=== PATIENT | female | born 1965 | race Two or more races ===

== ENCOUNTER 2017-01-18 08:16 | Emergency (ER) | payer SELFPAY ==
[~2017-01-18] VITALS: Ht 160 cm; Wt 74.8 kg
[~2017-01-18 08:16] MED LIST: METH5TAB2 PO
--- NOTE | 2017-01-18 10:12 | PHYS DOC ---
Past Medical History Past Medical History: Kidney Stone, Other Additional Past Medical Histor: stomach ulcer Past Surgical History: Hysterectomy Alcohol Use: None Drug Use: None Adult General Chief Complaint Chief Complaint: RECTAL BLEED HPI HPI Patient is a 52 year old F who presents with GI bleed. Patient states that for the past 3 days she's had a mix of dark and bright red blood per rectum. Patient describes some epigastric pain. Patient states she has a history of bleeding ulcer. Patient states she's been under a lot of stress with the of her niece. Patient denies any hemorrhoids and states she is on any blood thinners. Patient denies any fevers. Patient denies any chest pain or shortness of breath. Patient has no other complaints. Review of Systems Review of Systems GEN: Denies fevers, chills, sweats HEENT: Denies blurred vision, sore throat CV: Denies chest pain RESP: Denies shortness of air, cough GI: Denies rectal bleeding NEURO: Denies confusion, dizziness MSK: Denies weakness, joint pain/swelling Current Medications Current Medications Current Medications Medications (Trade) Dose Ordered Sig/Gabby Start Time Stop Time Status Last Admin Dose Admin Famotidine (Pepcid) 20 mg 1X ONCE 01/18/17 10:15 01/18/17 10:16 DC 01/18/17 10:29 20 MG Fentanyl Citrate (Fentanyl 2ml Vial) 50 mcg 1X ONCE 01/18/17 11:30 01/18/17 11:38 DC 01/18/17 11:23 50 MCG Info (Do NOT chart on this entry -- for MONITORING) 1 each PRN DAILY PRN 01/18/17 10:30 01/20/17 10:29 Iohexol (Omnipaque 300 Mg/ml) 75 ml 1X ONCE 01/18/17 10:30 01/18/17 10:31 DC 01/18/17 10:33 75 ML Allergies Allergies Allergies Coded Allergies Type Severity Reaction Last Updated Verified codeine Allergy Intermediate ITCHING 11/19/13 Yes Physical Exam Physical Exam GEN.: No apparent distress. Alert and oriented. HEENT: Head is normocephalic, atraumatic NECK: Supple. LUNGS: CTAB. HEART: RRR, S1, S2 present. Peripheral pulses intact ABDOMEN: Soft, nontender. Positive bowel sounds. Rectal exam done by the nurse no gross blood seen, no hemorrhoids, stool sent to lab for testing of occult blood EXTREMITIES: Without any cyanosis. NEUROLOGIC: Normal speech, normal tone PSYCHIATRIC: Normal affect, normal mood. SKIN: No ulcerations Current Patient Data Vital Signs Vital Signs Date Time Temp Pulse Resp B/P (MAP) Pulse Ox O2 Delivery O2 Flow Rate FiO2 01/18/17 12:17 12 98 Room Air 01/18/17 12:11 66 94/68 (77) 01/18/17 09:25 98.1 98.1 Lab Values Laboratory Tests Test 01/18/17 09:25 01/18/17 09:30 01/18/17 09:41 01/18/17 10:10 Urine Collection Type Unknown Urine Color Yellow Urine Clarity Clear Urine pH 6.5 Urine Specific [place] 1.010 Urine Protein Negative mg/dL (NEG-TRACE) Urine Glucose (UA) Negative mg/dL (NEG) Urine Ketones (Stick) Negative mg/dL (NEG) Urine Blood Large (NEG) Urine Nitrite Negative (NEG) Urine Bilirubin Negative (NEG) Urine Urobilinogen Dipstick 0.2 mg/dL (0.2 mg/dL) Urine Leukocyte Esterase Negative (NEG) Urine RBC >40 /HPF (0-2) Urine WBC 0 /HPF (0-4) Urine Squamous Epithelial Cells Few /LPF Urine Bacteria 0 /HPF (0-FEW) White Blood Count 4.1 x10^3/uL (4.0-11.0) Red Blood Count 4.33 x10^6/uL (3.50-5.40) Hemoglobin 13.0 g/dL (12.0-15.5) Hematocrit 38.3 % (36.0-47.0) Mean Corpuscular Volume 89 fL (79-100) Mean Corpuscular Hemoglobin 30 pg (25-35) Mean Corpuscular Hemoglobin Concent 34 g/dL (31-37) Red Cell Distribution Width 12.7 % (11.5-14.5) Platelet Count 313 x10^3/uL (140-400) Neutrophils (%) (Auto) 52 % (31-73) Lymphocytes (%) (Auto) 38 % (24-48) Monocytes (%) (Auto) 8 % (0-9) Eosinophils (%) (Auto) 2 % (0-3) Basophils (%) (Auto) 1 % (0-3) Neutrophils # (Auto) 2.1 x10^3uL (1.8-7.7) Lymphocytes # (Auto) 1.5 x10^3/uL (1.0-4.8) Monocytes # (Auto) 0.3 x10^3/uL (0.0-1.1) Eosinophils # (Auto) 0.1 x10^3/uL (0.0-0.7) Basophils # (Auto) 0.0 x10^3/uL (0.0-0.2) Sodium Level 140 mmol/L (136-145) Potassium Level 3.5 mmol/L (3.5-5.1) Chloride Level 103 mmol/L (98-107) Carbon Dioxide Level 31 mmol/L (21-32) Anion Gap 6 (6-14) Blood Urea Nitrogen 8 mg/dL (7-20) Creatinine 0.7 mg/dL (0.6-1.0) Estimated GFR (Cockcroft-Gault) 87.5 BUN/Creatinine Ratio 11 (6-20) Glucose Level 109 mg/dL (70-99) H Calcium Level 9.2 mg/dL (8.5-10.1) Total Bilirubin 1.0 mg/dL (0.2-1.0) Aspartate Amino Transferase (AST) 17 U/L (15-37) Alanine Aminotransferase (ALT) 41 U/L (14-59) Alkaline Phosphatase 115 U/L (46-116) Total Protein 8.2 g/dL (6.4-8.2) Albumin 4.1 g/dL (3.4-5.0) Albumin/Globulin Ratio 1.0 (1.0-1.7) Lipase 122 U/L (73-393) Stool Occult Blood Negative (NEG) Lactic Acid Level 1.1 mmol/L (0.4-2.0) Laboratory Tests 01/18/17 09:30 Laboratory Tests 01/18/17 09:30 EKG EKG [] Radiology/Procedures Radiology/Procedures CT A and P Findings: Comparison study is dated 11/19/2013. Images through the lung bases demonstrate minimal dependent subsegmental atelectasis bilaterally. The liver, spleen, pancreas, and adrenal glands are within normal limits. A 5 mm rounded low-attenuation lesion is seen involving the superior pole of the right kidney. This likely represents a cyst. A 1 cm nonobstructing calculus is seen involving the lower pole of the left kidney. The abdominal aorta tapers normally. The gallbladder is contracted. No free fluid or free air is seen within the abdomen. There is no evidence of bowel obstruction. Images through the pelvis demonstrate the urinary bladder distended with urine. No free fluid is seen. Degenerative changes are seen involving the lower thoracic and throughout the lumbar spine and both hips. Impression: No acute abnormality is seen.[] Course & Med Decision Making Course & Med Decision Making Pertinent Labs and Imaging studies reviewed. (See chart for details) ED course: Patient was seen and examined emergency room CBC, CMP, lipase, CT scan abdomen pelvis, stool sample for occult blood was ordered 1244: On reexamination patient is improved and feeling better. Discussed with the patient that her rectal exam showed no blood in her CT scan was unremarkable. Patient does have significant hematuria and patient stated she had no signs or symptoms of UTI. Recommended patient follow-up with PCP for further evaluation of the hematuria. At this time I do not believe the patient has a UTI and therefore does not need antibiotics. I believe the patient is stable for discharge. Patient is comfortable going home. MDM: After reviewing the chart, CC/HPI/PMH, physical exam, [lab results], [ radiological results], I do not believe the patient's having a GI bleed given the fact the Hemoccult was negative in the CT scan was unremarkable. I believe the blood is coming from her urine however the patient having no signs of UTI and I recommended she follow up with PCP for further evaluation of her hematuria in the next 1-2 days. I believe the patient is stable for discharge. Additional verbal discharge instructions were provided to the patient and that if symptoms get worse or any new symptoms arise that are worrisome to the patient she is to return to the emergency room immediately [] Dragon Disclaimer Dragon Disclaimer This electronic medical record was generated, in whole or in part, using a voice recognition dictation system. Departure Departure Impression: Primary Impression: Hematuria Additional Impression: Abdominal pain Disposition: 01 HOME, SELF-CARE Condition: IMPROVED Referrals: UNKNOWN PCP NAME (PCP) Patient Instructions: Hematuria-Brief Additional Instructions: Please follow up with your family physician in one to 2 days and return symptoms increase Problem Qualifiers ИРИНА ROBERT DO Jan 18, 2017 10:12
[2017-01-18] MEDS ORDERED: FAMOTIDINE 20 MG TABLET. PO ONE (10:15)
[2017-01-18 10:21] LABS: NEG OBC FOB NEG; POS OBC FOB POS
[2017-01-18 10:26] LABS: BILIRUBIN,URINE NEGATIVE (NEG); GLUCOSE,URINE NEGATIVE (NEG); NITRITE,URINE NEGATIVE (NEG); PH,URINE 6.5; PROTEIN,URINE NEGATIVE (NEG-TRACE); UROBILINOGEN,URINE 0.2 mg/dL (0.2 mg/dL)
[2017-01-18 10:27] LABS: BACTERIA,URINE 0 /HPF (0-FEW); RBC,URINE >40 /HPF (0-2); SQUAMOUS EPITHELIAL CELL,UR FEW /LPF; WBC,URINE 0 /HPF (0-4)
[2017-01-18] MEDS ORDERED: IOHEXOL 300 MG/ML 75 ML VIAL IV ONE (10:30)
[2017-01-18] MEDS ORDERED: CONTRAST GIVEN MC PRN (10:30)
--- NOTE | 2017-01-18 10:36 | RAD ---
CT scan of the abdomen and pelvis with contrast 01/18/2017 Clinical history: GI bleeding. Technique: After the intravenous administration of 75 cc of Omnipaque 300 only, contiguous, 5 mm axial sections were obtained through the abdomen and pelvis. One or more of the following individualized dose reduction techniques were utilized for this study: 1. Automated exposure control. 2. Adjustment of the mA and/or kV according to patient size. 3. Use of iterative reconstruction technique. Findings: Comparison study is dated 11/19/2013. Images through the lung bases demonstrate minimal dependent subsegmental atelectasis bilaterally. The liver, spleen, pancreas, and adrenal glands are within normal limits. A 5 mm rounded low-attenuation lesion is seen involving the superior pole of the right kidney. This likely represents a cyst. A 1 cm nonobstructing calculus is seen involving the lower pole of the left kidney. The abdominal aorta tapers normally. The gallbladder is contracted. No free fluid or free air is seen within the abdomen. There is no evidence of bowel obstruction. Images through the pelvis demonstrate the urinary bladder distended with urine. No free fluid is seen. Degenerative changes are seen involving the lower thoracic and throughout the lumbar spine and both hips. Impression: No acute abnormality is seen.
[2017-01-18 10:42] LABS: CALCIUM 9.2 mg/dL (8.5-10.1); CREATININE 0.7 mg/dL (0.6-1.0); GFR 87.5; POTASSIUM 3.5 mmol/L (3.5-5.1)
[2017-01-18 10:43] LABS: BASO % 1 % (0-3); EOS % 2 % (0-3); HEMATOCRIT 38.3 % (36.0-47.0); LYMPH # 1.5 x10^3/uL (1.0-4.8); LYMPH % 38 % (24-48); MEAN CORPUSCULAR HEMOGLOBIN 30 pg (25-35); MEAN CORPUSCULAR HGB CONC 34 g/dL (31-37); MEAN CORPUSCULAR VOLUME 89 fL (79-100); MONO % 8 % (0-9); NEUT % 52 % (31-73); PLATELET COUNT 313 x10^3/uL (140-400); RED BLOOD COUNT 4.33 x10^6/uL (3.50-5.40); RED CELL DISTRIBUTION WIDTH 12.7 % (11.5-14.5); WHITE BLOOD COUNT 4.1 x10^3/uL (4.0-11.0)
[2017-01-18 10:48] LABS: ALBUMIN 4.1 g/dL (3.4-5.0); TOTAL PROTEIN 8.2 g/dL (6.4-8.2)
[2017-01-18] MEDS ORDERED: fentaNYL PF VIAL 100 MCG/2 ML VIAL IV ONE (11:30)
[2017-01-18 12:11] VITALS: BP 94/68
== END 2017-01-18 13:08 | disposition home or self-care (01) ==
LOC: ER 08:16
DX: R31.9 Hematuria, unspecified (principal); R10.13 Epigastric pain; K92.2 Gastrointestinal hemorrhage, unspecified; Z90.710 Acquired absence of both cervix and uterus; Z87.442 Personal history of urinary calculi; Z87.19 Personal history of other diseases of the digestive system; Z88.5 Allergy status to narcotic agent
CPT/HCPCS: 36415; 74177; 80053; 81001; 82274; 83605; 83690; 85025; 86850; 86870; 86900; 86901; 96374; 99285; J3010; Q9967

== ENCOUNTER 2019-08-05 09:20 | Emergency (ER) | payer SELFPAY ==
[~2019-08-05] VITALS: Ht 162.6 cm; Wt 72.7 kg
[2019-08-05 09:23] VITALS: BP 134/64
[2019-08-05] MEDS ORDERED: NAPR-514 PO (09:35)
[2019-08-05] MEDS ORDERED: AMOX500C PO (09:35)
--- NOTE | 2019-08-05 09:35 | PHYS DOC ---
Past Medical History Past Medical History: Kidney Stone, Other Additional Past Medical Histor: stomach ulcer Past Surgical History: Hysterectomy Smoking Status: Never Smoker Alcohol Use: None Drug Use: None Adult General Chief Complaint Chief Complaint: EARACHE/EAR PAIN HPI HPI Patient is a 54-year-old female who presents with 2 day history of left ear pain. She states the pain is throbbing in nature. She states it got worse today. She did have some drainage from the ear this morning. She denies any hearing loss. She has been congested. She's not been running a fever.[] Review of Systems Review of Systems Constitutional: Denies fever or chills [] Eyes: Denies change in visual acuity, redness, or eye pain [] HENT: Per history of present illness[] Respiratory: Denies cough or shortness of breath [] Cardiovascular: No additional information not addressed in HPI [] GI: Denies abdominal pain, nausea, vomiting, bloody stools or diarrhea [] : Denies dysuria or hematuria [] Musculoskeletal: Denies back pain or joint pain [] Integument: Denies rash or skin lesions [] Neurologic: Denies headache, focal weakness or sensory changes [] Endocrine: Denies polyuria or polydipsia [] All other systems were reviewed and found to be within normal limits, except as documented in this note. Allergies Allergies Allergies Coded Allergies Type Severity Reaction Last Updated Verified codeine Allergy Intermediate ITCHING 11/19/13 Yes Physical Exam Physical Exam Constitutional: Well developed, well nourished, no acute distress, non-toxic appearance. [] HENT: Left TM is red and bulging[] Eyes: PERRLA, EOMI, conjunctiva normal, no discharge. [] Neck: Normal range of motion, no tenderness, supple, no stridor. [] Cardiovascular:Heart rate regular rhythm, no murmur [] Lungs & Thorax: Bilateral breath sounds clear to auscultation [] Abdomen: Bowel sounds normal, soft, no tenderness, no masses, no pulsatile masses. [] Skin: Warm, dry, no erythema, no rash. [] Back: No tenderness, no CVA tenderness. [] Extremities: No tenderness, no cyanosis, no clubbing, ROM intact, no edema. [] Neurologic: Alert and oriented X 3, normal motor function, normal sensory function, no focal deficits noted. [] Psychologic: Affect normal, judgement normal, mood normal. [] EKG EKG [] Radiology/Procedures Radiology/Procedures [] Course & Med Decision Making Course & Med Decision Making Pertinent Labs and Imaging studies reviewed. (See chart for details) [] Dragon Disclaimer Dragon Disclaimer This electronic medical record was generated, in whole or in part, using a voice recognition dictation system. Departure Departure Impression: Primary Impression: Left otitis media Disposition: HOME, SELF-CARE Condition: STABLE Referrals: NO PCP (PCP) Scripts Naproxen (NAPROXEN) 500 Mg Tablet 1 TAB PO BID PRN for PAIN, #30 TAB 1 Refill Prov: BRENNA SIPMSON DO 08/05/19 Amoxicillin (AMOXICILLIN) 500 Mg Capsule 1 CAP PO TID for pharyngitis, #30 CAP Prov: BRENNA SIMPSON DO 08/05/19 Problem Qualifiers Primary Impression: Left otitis media Otitis media type: suppurative Chronicity: acute Recurrence: non- recurrent Spontaneous tympanic membrane rupture: without spontaneous rupture Qualified Codes: H66.002 - Acute suppurative otitis media without spontaneous rupture of ear drum, left ear BRENNA SIMPSON DO Aug 05, 2019 09:35
== END 2019-08-05 09:40 | disposition home or self-care (01) ==
LOC: ER 09:20
DX: H66.002 Acute suppurative otitis media without spontaneous rupture of ear drum, left ear (principal); Z90.710 Acquired absence of both cervix and uterus; Z87.442 Personal history of urinary calculi; Z88.5 Allergy status to narcotic agent
CPT/HCPCS: 99283

== ENCOUNTER 2019-09-19 10:56 | Emergency (ER) | payer SELFPAY ==
[~2019-09-19] VITALS: Ht 162.6 cm; Wt 83.1 kg
[~2019-09-19 10:56] MED LIST changes: +AMOX500C PO; +NAPR-514 PO
[2019-09-19 11:00] VITALS: BP 129/64
[2019-09-19] MEDS ORDERED: PRED20TA PO (11:48)
[2019-09-19] MEDS ORDERED: CYCL10TA2 PO (11:48)
--- NOTE | 2019-09-19 11:48 | PHYS DOC ---
Past Medical History Past Medical History: Kidney Stone, Other Additional Past Medical Histor: stomach ulcer Past Surgical History: Hysterectomy Smoking Status: Never Smoker Alcohol Use: None Drug Use: None General Adult EDM: Chief Complaint: BACK PAIN - NO INJURY HPI: HPI: Patient is a 54-year-old female who presents to the emergency department for evaluation of right Lumbar/sacral pain. She states that on Tuesday, she was helping her , who has had a stroke, and she lifted him up and felt a pulling in her right lower back, and her lumbar/sacral area. She has not had any numbness, weakness, incontinence, fevers or chills, or radiation of the pain. She has not had any hematuria or dysuria. Movement and ambulation worsens her pain. There are no alleviating factors to her symptoms. She has tried using a heating pad without improvement in her symptoms. Review of Systems: Review of Systems: Constitutional: Denies fever or chills. [] Eyes: Denies change in visual acuity. [] HENT: Denies nasal congestion or sore throat. [] Respiratory: Denies cough or shortness of breath. [] Cardiovascular: Denies chest pain or edema. [] GI: Denies abdominal pain, nausea, vomiting, bloody stools or diarrhea. [] : Denies dysuria. [] Musculoskeletal: Denies mid or upper back pain or joint pain. [] Integument: Denies rash. [] Neurologic: Denies headache, focal weakness or sensory changes. [] Endocrine: Denies polyuria or polydipsia. [] Heart Score: Risk Factors: Risk Factors: DM, Current or recent (<one month) smoker, HTN, HLP, family history of CAD, obesity. Risk Scores: Score 0 - 3: 2.5% MACE over next 6 weeks - Discharge Home Score 4 - 6: 20.3% MACE over next 6 weeks - Admit for Clinical Observation Score 7 - 10: 72.7% MACE over next 6 weeks - Early Invasive Strategies Allergies: Allergies: Allergies Coded Allergies Type Severity Reaction Last Updated Verified codeine Allergy Intermediate ITCHING 11/19/13 Yes Physical Exam: PE: PHYSICAL EXAM: CONSTITUTIONAL: Well developed, well nourished HEAD: normocephalic, atraumatic EENT: PERRL, EOMI. Conjunctivae normal color, sclerae non-icteric; moist mucous membranes. NECK: Supple, non-tender; no meningismus. LUNGS: Lungs CTA, breathing even and unlabored. Normal air movement. HEART: Regular rate and rhythm, no murmur CHEST: No deformity; non-tender ABDOMEN: The abdomen is soft, and non-tender, no masses or bruits. EXTREM: Normal ROM; no deformity, no calf tenderness. Normal pulses palpable in all extremities. There is no pedal edema. SKIN: No rash; no diaphoresis NEURO: Alert; normal speech and cognition; CN's grossly intact; strength grossly intact without focal deficit. Distal sensation and motor function is normal. There is no foot drop. Patellar reflexes are 2+ bilaterally. Perineal sensation is intact. BACK: No CVA TTP. There is mild tenderness to palpation in the right lower lumbar/sacral area, and the paraspinal region. There is no midline vertebral tenderness to palpation to the thoracic, lumbar, or sacral spine. Current Patient Data: Vital Signs: Vital Signs Date Time Temp Pulse Resp B/P (MAP) Pulse Ox O2 Delivery O2 Flow Rate FiO2 09/19/19 11:00 99.0 66 18 129/64 (85) 97 Room Air 99.0 EKG: EKG: [] Radiology/Procedures: Radiology/Procedures: [] Course & Med Decision Making: Course & Med Decision Making Discussed home care plan, the need for PCP follow-up and return precautions. Philip Disclaimer: Philip Disclaimer: This electronic medical record was generated, in whole or in part, using a voice recognition dictation system. Departure Departure Impression: Primary Impression: Lumbosacral strain Disposition: 01 HOME, SELF-CARE Condition: STABLE Patient Instructions: Lumbosacral Strain Additional Instructions: Ibuprofen 400-600 mg every 6 hours may help improve your symptoms. Applying a heating pad to the affected area may help improve your symptoms. The prescribed medications may cause drowsiness-use caution while taking. Return to medical care for any new or worsening symptoms, development of numbness, weakness, incontinence, or any other new or concerning symptoms. Scripts Prednisone (PREDNISONE) 20 Mg Tablet 40 MG PO DAILY for 5 Days, #10 TAB Prov: WILLA MOORE MD 09/19/19 Cyclobenzaprine Hcl (CYCLOBENZAPRINE HCL) 10 Mg Tablet 1 TAB PO TID PRN for PAIN, #30 TAB Prov: WILLA MOORE MD 09/19/19 WILLA MOORE MD Sep 19, 2019 11:48
== END 2019-09-19 11:57 | disposition home or self-care (01) ==
LOC: ER 10:56
DX: S29.012A Strain of muscle and tendon of back wall of thorax, initial encounter (principal); Z90.710 Acquired absence of both cervix and uterus; Z87.442 Personal history of urinary calculi; X50.0XXA Overexertion from strenuous movement or load, initial encounter; Y93.89 Activity, other specified; Y92.89 Other specified places as the place of occurrence of the external cause; Y99.8 Other external cause status
CPT/HCPCS: 99283

== ENCOUNTER 2019-10-25 17:29 | Emergency (ER) | payer SELFPAY ==
[~2019-10-25] VITALS: Ht 157.5 cm; Wt 75.0 kg
[~2019-10-25 17:29] MED LIST changes: +CYCL10TA2 PO; +PRED20TA PO
--- NOTE | 2019-10-25 18:24 | PHYS DOC ---
Past Medical History Past Medical History: Kidney Stone, Other Additional Past Medical Histor: stomach ulcer Past Surgical History: Hysterectomy Smoking Status: Never Smoker Alcohol Use: None Drug Use: None General Adult EDM: Chief Complaint: FLANK PAIN HPI: HPI: Patient is a 54 year old female presenting to the ED with a chief complaint of left flank pain. Patient states that the pain started 2 to 3 days ago. Patient denies fever, chills, nausea, vomiting, diarrhea, dysuria, chest pain, shortness of breath. Patient does say that she has a history of kidney stones. Patient states that the pain is constant and that it radiates to her left lower abdomen. Patient describes the pain as throbbing. Review of Systems: Review of Systems: Constitutional: Denies fever or chills. [] Eyes: Denies change in visual acuity. [] HENT: Denies nasal congestion or sore throat. [] Respiratory: Denies cough or shortness of breath. [] Cardiovascular: Denies chest pain or edema. [] GI: Complains of left CVA tenderness radiating down to her left lower quadrant : Denies dysuria. [] Musculoskeletal: Denies back pain or joint pain. [] Neurologic: Denies headache, focal weakness or sensory changes. [] Heart Score: Risk Factors: Risk Factors: DM, Current or recent (<one month) smoker, HTN, HLP, family history of CAD, obesity. Risk Scores: Score 0 - 3: 2.5% MACE over next 6 weeks - Discharge Home Score 4 - 6: 20.3% MACE over next 6 weeks - Admit for Clinical Observation Score 7 - 10: 72.7% MACE over next 6 weeks - Early Invasive Strategies Allergies: Allergies: Allergies Coded Allergies Type Severity Reaction Last Updated Verified codeine Allergy Intermediate ITCHING 11/19/13 Yes Physical Exam: PE: Constitutional: Well developed, well nourished, no acute distress, non-toxic appearance. [] HENT: Normocephalic, atraumatic Eyes: EOMI Neck: Normal range of motion, Supple Cardiovascular:Heart rate regular rhythm Lungs & Thorax: Bilateral breath sounds clear to auscultation [] Abdomen: Bowel sounds normal, soft, CVA tenderness radiating down to the left lower quadrant Extremities: No tenderness, ROM intact Neurologic: Alert and oriented X 3 Current Patient Data: Vital Signs: Vital Signs Date Time Temp Pulse Resp B/P (MAP) Pulse Ox O2 Delivery O2 Flow Rate FiO2 10/25/19 17:39 97.8 61 18 133/70 (91) 97 Room Air 97.8 EKG: EKG: [] Radiology/Procedures: Radiology/Procedures: [] Impression: CT Impression: Moderate left hydronephrosis and left hydroureter secondary to a 1.3 cm stone at the UVJ. Course & Med Decision Making: Course & Med Decision Making Pertinent Labs and Imaging studies reviewed. (See chart for details) Ordered labs, UA, IV fluids, Toradol IV, CT abdomen pelvis without contrast. Labs are within normal limits. UA shows hematuria but no UTI. CT abdomen pelvis shows 13 mm left UVJ stone. There is moderate hydronephrosis and hydroureter present. Since there is no urology coverage at [facility], I will page urologist at [facility]. I discussed results and plan of care with patient. I discussed results and patient presentation with [facility] urologist on-call Dr. Farr. Since patient's pain is now controlled, patient does not have a UTI and labs are within normal limits. He recommends the patient can be seen as an outpatient and that patient should call his office tomorrow morning. I have discussed plan of care with patient and she also does not want to be admitted due to the coronavirus pandemic. Patient prefers to be discharged home and she will call the urologist office tomorrow morning. Discussed results and plan of care with patient. Patient is instructed to follow up with PCP in one to 2 days. Appropriate discharge instructions given to patient to return to the ED or to seek immediate medical evaluation. Patient is instructed to return to the ED if symptoms worsen or if any concerns. Dragon Disclaimer: Tereon Disclaimer: This electronic medical record was generated, in whole or in part, using a voice recognition dictation system. Departure Departure Impression: Primary Impression: Ureterolithiasis Disposition: 01 HOME, SELF-CARE Condition: IMPROVED Referrals: NO PCP (PCP) Please call Dr Miguel at [phone] tomorrow morning for appointment Patient Instructions: Kidney Stones Additional Instructions: Please call Dr Miguel at [phone] tomorrow morning for appointment Please return to the ED if symptoms worsen or if any concerns. Scripts Ondansetron Hcl (ZOFRAN) 4 Mg Tablet 1 TAB PO Q6HRS for nausea, #15 TAB Prov: NORMA ZIMMERMAN DO 10/25/19 Hydrocodone/Apap 5-325 (NORCO 5-325 TABLET) 1 Each Tablet 1 EACH PO PRN Q6HRS PRN for PAIN, #12 as needed for pain Prov: NORMA ZIMMERMAN DO 10/25/19 Justicifation of Admission Dx: Justifications for Admission: Justification of Admission Dx: No Attending Signature Attending Signature I have participated in the care of this patient and I have reviewed and agree with all pertinent clinical information above including history, exam, and recommendations. NORMA ZIMMERMAN DO Oct 25, 2019 18:24
[2019-10-25] MEDS ORDERED: IV NORMAL SALINE 1000ML BAG 1,000 ML IV ONE (18:45)
[2019-10-25 18:49] LABS: BASO % 1 % (0-3); EOS # 0.2 x10^3/uL (0.0-0.7); EOS % 4 % (0-3); HEMATOCRIT 35.3 % (36.0-47.0); HEMOGLOBIN 12.2 g/dL (12.0-15.5); LYMPH # 1.9 x10^3/uL (1.0-4.8); LYMPH % 42 % (24-48); MEAN CORPUSCULAR HEMOGLOBIN 30 pg (25-35); MEAN CORPUSCULAR HGB CONC 34 g/dL (31-37); MEAN CORPUSCULAR VOLUME 87 fL (79-100); MONO # 0.5 x10^3/uL (0.0-1.1); MONO % 12 % (0-9); NEUT # 1.9 x10^3/uL (1.8-7.7); NEUT % 42 % (31-73); PLATELET COUNT 307 x10^3/uL (140-400); RED BLOOD COUNT 4.05 x10^6/uL (3.50-5.40); RED CELL DISTRIBUTION WIDTH 13.4 % (11.5-14.5); WHITE BLOOD COUNT 4.6 x10^3/uL (4.0-11.0)
[2019-10-25 18:56] LABS: CALCIUM 8.6 mg/dL (8.5-10.1); CREATININE 0.8 mg/dL (0.6-1.0); GFR 74.5; POTASSIUM 3.5 mmol/L (3.5-5.1)
[2019-10-25 19:02] LABS: ALBUMIN 3.6 g/dL (3.4-5.0); ALBUMIN/GLOBULIN RATIO 0.8 (1.0-1.7); TOTAL BILIRUBIN 0.4 mg/dL (0.2-1.0); TOTAL PROTEIN 7.9 g/dL (6.4-8.2)
[2019-10-25 19:11] LABS: BILIRUBIN,URINE NEGATIVE (NEG); CLARITY,URINE CLEAR; COLOR,URINE AMBER; NITRITE,URINE NEGATIVE (NEG); PROTEIN,URINE 30 mg/dL (NEG-TRACE); UROBILINOGEN,URINE 0.2 mg/dL (0.2 mg/dL)
--- NOTE | 2019-10-25 19:16 | RAD ---
Abdominal and Pelvis CT, Without Contrast: History: Reason: left CVA-L FLANK PAIN -H/O KIDNEY STONES / Spl. Instructions: / History: Comparison: January 18, 2017. Procedure: Axial images are obtained of the abdomen and pelvis, without IV or oral contrast. Oral Contrast: No Findings: Evaluation of solid organs is limited without contrast. Liver: Normal. Spleen: Normal. Pancreas: Normal. Adrenal Glands: Normal. Kidneys: Moderate left hydronephrosis and left hydroureter secondary to a 1.3 cm stone at the UVJ. There is a 6 mm nonobstructive stone in the right renal pelvis. There are few small nonobstructive stones in the right renal pelvis. There is no free air or free fluid. There is no lymphadenopathy. The urinary bladder appears normal. There is no pericolonic inflammation identified. The appendix is not visualized. The gallbladder appears normal. Impression: Moderate left hydronephrosis and left hydroureter secondary to a 1.3 cm stone at the UVJ. End impression PQRS Compliance Statement: One or more of the following individualized dose reduction techniques were utilized for this examination: 1. Automated exposure control 2. Adjustment of the mA and/or kV according to patient size 3. Use of iterative reconstruction technique Electronically signed by: Kenny Cunningham III, MD (10/25/2019 7:14 PM) [id number]
[2019-10-25 19:17] LABS: BACTERIA,URINE FEW /HPF (0-FEW); RBC,URINE TNTC /HPF (0-2); SQUAMOUS EPITHELIAL CELL,UR MANY /LPF
[2019-10-25] MEDS ORDERED: KETOROLAC 30 MG/ML VIAL. IVP ONE (19:30)
[2019-10-25 20:12] VITALS: BP 142/73
[2019-10-25] MEDS ORDERED: ONDA4TAB7 PO (20:30)
[2019-10-25] MEDS ORDERED: HYDR-3164 PO (20:30)
== END 2019-10-25 20:43 | disposition home or self-care (01) ==
LOC: ER 17:29
DX: N13.2 Hydronephrosis with renal and ureteral calculous obstruction (principal); R10.32 Left lower quadrant pain; Z87.442 Personal history of urinary calculi; Z90.710 Acquired absence of both cervix and uterus; Z88.5 Allergy status to narcotic agent
CPT/HCPCS: 36415; 74176; 80053; 81001; 85025; 87086; 96374; 99285; J1885; J7030

== ENCOUNTER → 2020-08-18 | Outpatient (CLI) | payer OTHER ==
[~2020-08-18] MED LIST changes: +HYDR-3164 PO; +ONDA4TAB7 PO
--- NOTE | 2020-08-18 13:09 | RAD ---
EXAM: Right knee, 2 views. HISTORY: Pain. COMPARISON: None. FINDINGS: 2 views the right knee are obtained. There is moderate medial and lateral compartment and s evere patellofemoral compartment spurring. There is patellofemoral compartment joint space narrowing with subchondral sclerosis. There is a small joint effusion. There are few benign bone islands. There are incidental growth arrest lines. IMPRESSION: 1. Moderate to severe patellofemoral compartment and moderate lateral and medial compartment osteoart hritis of the right knee with small joint effusion. 2. No acute osseous finding. Electronically signed by: Juliet Tapia MD (08/18/2020 1:06 PM) [id number]
== END ==
LOC: RAD 09:52
PROVIDERS: ATTEND Surgery
DX: M17.11 Unilateral primary osteoarthritis, right knee (principal); M25.461 Effusion, right knee
CPT/HCPCS: 73560

== ENCOUNTER 2020-08-31 16:29 | Emergency (ER) | payer SELFPAY ==
[~2020-08-31] VITALS: Ht 160 cm; Wt 85.0 kg
[2020-08-31 17:10] LABS: BILIRUBIN,URINE NEGATIVE (NEG); CLARITY,URINE CLEAR; COLOR,URINE YELLOW; NITRITE,URINE NEGATIVE (NEG); PH,URINE 5.5 (<5.0-8.0); PROTEIN,URINE NEGATIVE (NEG-TRACE); UROBILINOGEN,URINE 0.2 mg/dL (0.2 mg/dL)
--- NOTE | 2020-08-31 17:12 | ED.ADGEN ---
Past Medical History Past Medical History: Kidney Stone, Other Additional Past Medical Histor: stomach ulcer Past Surgical History: , Hysterectomy Additional Past Surgical Histo: Kidney stents done at Smoking Status: Never Smoker Alcohol Use: None Drug Use: None General Adult EDM: Chief Complaint: FLANK PAIN HPI: HPI: Patient is a 55 year old female coming in for left flank pain worsening over the past week. Patient states the pain is initially intermittent and sharp. Said this got more constant is been waking her from sleep. Patient states she has a history of kidney stones which required removal at [facility]. Patient is also concerned about constipation. She takes methadone and visualized abdominal for 3 to 4 days. Had one this morning though. Has a family history of colon cancer is concerned about constipation secondary to cancer. Had a colonoscopy couple years ago that was normal. No other complaints patient states she otherwise has been well. Has a surgical history of hysterectomy and C-sections, no other medical history. Review of Systems: Review of Systems: All other systems within normal limits except for as noted in the HPI Current Medications: Current Medications Medications (Trade) Dose Ordered Sig/Gabby Start Time Stop Time Status Last Admin Dose Admin Fentanyl Citrate (Fentanyl 2ml Vial) 75 mcg 1X ONCE 08/31/20 17:30 08/31/20 17:31 DC 08/31/20 17:24 75 MCG Allergies: Allergies: Allergies Coded Allergies Type Severity Reaction Last Updated Verified codeine Allergy Intermediate ITCHING 11/19/13 Yes Physical Exam: PE: Constitutional: Well developed, well nourished, no acute distress, non-toxic appearance. [] HENT: Normocephalic, atraumatic, bilateral external ears normal, nose normal. [] Eyes: PERRLA, conjunctiva normal, no discharge. [] Neck: No rigidity, supple, no stridor. [] Cardiovascular: Regular rate and rhythm, brisk cap refill [] Lungs & Thorax: Non labored symmetric respirations, no tachypnea or respiratory distress [] Abdomen: Soft, nondistended, less abdominal tenderness. Skin: Warm, dry, no erythema, no rash. [] Back: Unremarkable, left CVA tenderness Extremities: No deformities, range of motion grossly intact, no lower extremity edema [] Neurologic: Alert and oriented X 3, no focal deficits noted. [] Psychologic: Affect normal, judgement normal, mood normal. [] Current Patient Data: Labs: Laboratory Tests Test 08/31/20 16:32 08/31/20 16:40 08/31/20 17:13 Urine Collection Type Unknown Urine Color Yellow Urine Clarity Clear Urine pH 5.5 (<5.0-8.0) Urine Specific [place] 1.020 (1.000-1.030) Urine Protein Negative mg/dL (NEG-TRACE) Urine Glucose (UA) Negative mg/dL (NEG) Urine Ketones (Stick) Negative mg/dL (NEG) Urine Blood Large (NEG) Urine Nitrite Negative (NEG) Urine Bilirubin Negative (NEG) Urine Urobilinogen Dipstick 0.2 mg/dL (0.2 mg/dL) Urine Leukocyte Esterase Small (NEG) Urine RBC 1-2 /HPF (0-2) Urine WBC 1-4 /HPF (0-4) Urine Squamous Epithelial Cells Many /LPF Urine Amorphous Sediment Present /HPF Urine Bacteria Few /HPF (0-FEW) Urine Hyaline Casts Occasional /HPF Urine Mucus Marked /LPF POC Urine HCG, Qualitative Hcg negative (Negative) White Blood Count 4.7 x10^3/uL (4.0-11.0) Red Blood Count 4.12 x10^6/uL (3.50-5.40) Hemoglobin 12.5 g/dL (12.0-15.5) Hematocrit 37.3 % (36.0-47.0) Mean Corpuscular Volume 91 fL (79-100) Mean Corpuscular Hemoglobin 30 pg (25-35) Mean Corpuscular Hemoglobin Concent 34 g/dL (31-37) Red Cell Distribution Width 12.8 % (11.5-14.5) Platelet Count 250 x10^3/uL (140-400) Neutrophils (%) (Auto) 42 % (31-73) Lymphocytes (%) (Auto) 41 % (24-48) Monocytes (%) (Auto) 11 % (0-9) H Eosinophils (%) (Auto) 5 % (0-3) H Basophils (%) (Auto) 1 % (0-3) Neutrophils # (Auto) 2.0 x10^3/uL (1.8-7.7) Lymphocytes # (Auto) 1.9 x10^3/uL (1.0-4.8) Monocytes # (Auto) 0.5 x10^3/uL (0.0-1.1) Eosinophils # (Auto) 0.2 x10^3/uL (0.0-0.7) Basophils # (Auto) 0.1 x10^3/uL (0.0-0.2) Sodium Level 135 mmol/L (136-145) L Potassium Level 3.9 mmol/L (3.5-5.1) Chloride Level 101 mmol/L (98-107) Carbon Dioxide Level 28 mmol/L (21-32) Anion Gap 6 (6-14) Blood Urea Nitrogen 12 mg/dL (7-20) Creatinine 0.8 mg/dL (0.6-1.0) Estimated GFR (Cockcroft-Gault) 74.2 BUN/Creatinine Ratio 15 (6-20) Glucose Level 127 mg/dL (70-99) H Calcium Level 8.6 mg/dL (8.5-10.1) Total Bilirubin 0.5 mg/dL (0.2-1.0) Aspartate Amino Transferase (AST) 125 U/L (15-37) H Alanine Aminotransferase (ALT) 241 U/L (14-59) H Alkaline Phosphatase 108 U/L (46-116) Total Protein 7.7 g/dL (6.4-8.2) Albumin 3.5 g/dL (3.4-5.0) Albumin/Globulin Ratio 0.8 (1.0-1.7) L Lipase 91 U/L (73-393) Laboratory Tests 08/31/20 17:13 Laboratory Tests 08/31/20 17:13 Vital Signs: Vital Signs Date Time Temp Pulse Resp B/P (MAP) Pulse Ox O2 Delivery O2 Flow Rate FiO2 08/31/20 16:40 98.1 52 16 125/70 (88) 96 Room Air 98.1 EKG: EKG: [] Heart Score: C/O Chest Pain: No Risk Factors: Risk Factors: DM, Current or recent (<one month) smoker, HTN, HLP, family history of CAD, obesity. Risk Scores: Score 0 - 3: 2.5% MACE over next 6 weeks - Discharge Home Score 4 - 6: 20.3% MACE over next 6 weeks - Admit for Clinical Observation Score 7 - 10: 72.7% MACE over next 6 weeks - Early Invasive Strategies Radiology/Procedures: Radiology/Procedures: Exam performed: CT scan of the abdomen and pelvis without contrast. Clinical Indication: Reason: Left flank pain / Spl. Instructions: / History: Date of Service: 08/31/2020 5:12 PM. Comparison: CT abdomen and pelvis from 10/25/2019 Technique: Contiguous helical acquisitions are obtained through the abdomen and pelvis without IV contrast. Sagittal and coronal reformatted images are obtained and reviewed. CT abdomen and pelvis findings: The lung bases are essentially clear. Visualized heart is normal. Lack of IV contrast limits evaluation of abdominal viscera, however the liver, spleen and pancreas are normal. Gallbladder is partially decompressed. Both adrenal glands and bilateral kidneys are normal in size without hydronephrosis. Tiny 2 mm nonobstructing calculus is seen in the right inferior renal pole. Aorta is normal in caliber without aneurysm. Small and large bowel loops are normal. The visualized portion of the appendix is unremarkable. Distal ureters are nondilated. Urinary bladder is decompressed and thick walled. [Prostate gland, seminal vesicles and rectum appear normal.] No free or focal fluid collections are identified.Bones are essentially normal. Impression: No acute intra-abdominal or pelvic process detected. Nonobstructing right renal calculus.[] Course & Med Decision Making: Course & Med Decision Making Pertinent Labs and Imaging studies reviewed. (See chart for details) Work-up unremarkable. Discussed the possibility that pain is musculoskeletal nature or possibly a passed stone since patient states she has seen an increase in blood in her urine recently. Return precautions given [] Tereon Disclaimer: Draganitra Disclaimer: This electronic medical record was generated, in whole or in part, using a voice recognition dictation system. Departure Departure Impression: Primary Impression: Left flank pain Disposition: 01 DC HOME SELF CARE/HOMELESS Condition: STABLE Referrals: NO PCP (PCP) Patient Instructions: Back Exercises Scripts Ketorolac Tromethamine (KETOROLAC TROMETHAMINE) 10 Mg Tablet 1 TAB PO TID PRN for PAIN for 5 Days, #15 TAB Prov: CHELY SERVIN MD 08/31/20 CHELY SERVIN MD Aug 31, 2020 17:12
[2020-08-31 17:20] VITALS: BP 112/70
[2020-08-31 17:22] LABS: BASO # 0.1 x10^3/uL (0.0-0.2); BASO % 1 % (0-3); EOS # 0.2 x10^3/uL (0.0-0.7); EOS % 5 % (0-3); HEMATOCRIT 37.3 % (36.0-47.0); HEMOGLOBIN 12.5 g/dL (12.0-15.5); LYMPH # 1.9 x10^3/uL (1.0-4.8); LYMPH % 41 % (24-48); MEAN CORPUSCULAR HEMOGLOBIN 30 pg (25-35); MEAN CORPUSCULAR HGB CONC 34 g/dL (31-37); MEAN CORPUSCULAR VOLUME 91 fL (79-100); MONO # 0.5 x10^3/uL (0.0-1.1); MONO % 11 % (0-9); NEUT % 42 % (31-73); PLATELET COUNT 250 x10^3/uL (140-400); RED BLOOD COUNT 4.12 x10^6/uL (3.50-5.40); RED CELL DISTRIBUTION WIDTH 12.8 % (11.5-14.5); WHITE BLOOD COUNT 4.7 x10^3/uL (4.0-11.0)
[2020-08-31 17:22] LABS: HYALINE CASTS, URINE OCCASIONAL /HPF
[2020-08-31 17:26] LABS: AMORPHOUS SEDIMENT,UR PRESENT /HPF; BACTERIA,URINE FEW /HPF (0-FEW)
[2020-08-31] MEDS ORDERED: fentaNYL PF VIAL 100 MCG/2 ML VIAL IVP ONE (17:30)
[2020-08-31 17:32] LABS: CALCIUM 8.6 mg/dL (8.5-10.1); CREATININE 0.8 mg/dL (0.6-1.0); GFR 74.2; POTASSIUM 3.9 mmol/L (3.5-5.1)
[2020-08-31 17:37] LABS: ALBUMIN 3.5 g/dL (3.4-5.0); ALBUMIN/GLOBULIN RATIO 0.8 (1.0-1.7); TOTAL BILIRUBIN 0.5 mg/dL (0.2-1.0); TOTAL PROTEIN 7.7 g/dL (6.4-8.2)
--- NOTE | 2020-08-31 17:43 | RAD ---
PQRS Compliance Statement: One or more of the following individualized dose reduction techniques were utilized for this examinat ion: 1. Automated exposure control 2. Adjustment of the mA and/or kV according to patient size 3. Use of iterative reconstruction technique Exam performed: CT scan of the abdomen and pelvis without contrast. Clinical Indication: Reason: Left flank pain / Spl. Instructions: / History: Date of Service: 08/31/2020 5:12 PM. Comparison: CT abdomen and pelvis from 10/25/2019 Technique: Contiguous helical acquisitions are obtained through the abdomen and pelvis without IV con trast. Sagittal and coronal reformatted images are obtained and reviewed. CT abdomen and pelvis findings: The lung bases are essentially clear. Visualized heart is normal. Lack of IV contrast limits evaluation of abdominal viscera, however the liver, spleen and pancreas ar e normal. Gallbladder is partially decompressed. Both adrenal glands and bilateral kidneys are normal in size without hydronephrosis. Tiny 2 mm nonobstructing calculus is seen in the right inferior hosea l pole. Aorta is normal in caliber without aneurysm. Small and large bowel loops are normal. The visu alized portion of the appendix is unremarkable. Distal ureters are nondilated. Urinary bladder is decompressed and thick walled. [Prostate gland, se ramiro vesicles and rectum appear normal.] No free or focal fluid collections are identified.Bones are essentially normal. Impression: No acute intra-abdominal or pelvic process detected. Nonobstructing right renal calculus. Electronically signed by: Jessica De La Cruz MD (08/31/2020 5:40 PM) [facility]
[2020-08-31] MEDS ORDERED: KETO10TA PO (17:52)
== END 2020-08-31 18:27 | disposition home or self-care (01) ==
LOC: ER 16:29
DX: R10.9 Unspecified abdominal pain (principal); Z87.891 Personal history of nicotine dependence; Z90.710 Acquired absence of both cervix and uterus; Z98.890 Other specified postprocedural states
CPT/HCPCS: 36415; 74176; 80053; 81001; 81025; 83690; 85025; 87086; 96374; 99284; J3010

== ENCOUNTER → 2020-11-20 | Outpatient (CLI) | payer OTHER ==
[~2020-11-20] MED LIST changes: +KETO10TA PO
--- NOTE | 2020-11-20 15:14 | RAD ---
EXAM: Thoracic spine, 2 views. HISTORY: Pain. COMPARISON: None. FINDINGS: 2 views of the thoracic spine are obtained. There is multilevel endplate remodeling with an terior predominant spurring. There is mild kyphosis at the thoracolumbar junction. There are multiple endplate Schmorl's nodes. There is no acute or subacute fracture. There are calcified mediastinum gr anulomas. There is a prominent cardiac silhouette. IMPRESSION: Multilevel degenerative change. No acute osseous finding. Electronically signed by: Juliet Tapia MD (11/20/2020 3:12 PM) [id number]
--- NOTE | 2020-11-20 15:18 | RAD ---
EXAM: XR KNEE_LT 1-2 VIEWS. HISTORY: Left knee pain. COMPARISON: None. FINDINGS: There is mild medial compartmental joint space narrowing with a vacuum phenomenon. Joint sp deanna narrowing appears moderate to severe along the patellofemoral compartment. There is moderate oste ophytosis along all 3 compartments. Multiple loose bodies within a popliteal cyst measure up to 12 mm . There is a small joint effusion. No fractures are identified. There is minimal varus angulation. IMPRESSION: 1. 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 Loose bodies with in a popliteal cyst. Electronically signed by: Roberta Mcpherson MD (11/20/2020 3:15 PM) [facility]
== END ==
LOC: RAD 13:31
PROVIDERS: ATTEND Family Medicine
DX: Z02.71 Encounter for disability determination (principal); M17.12 Unilateral primary osteoarthritis, left knee; M47.814 Spondylosis without myelopathy or radiculopathy, thoracic region; M25.462 Effusion, left knee; M71.22 Synovial cyst of popliteal space [Baker], left knee; M40.295 Other kyphosis, thoracolumbar region; M51.44 Schmorl's nodes, thoracic region; M25.762 Osteophyte, left knee; M23.42 Loose body in knee, left knee
CPT/HCPCS: 72072; 73560

== ENCOUNTER 2021-02-06 05:50 | Emergency (ER) | payer SELFPAY ==
[~2021-02-06] VITALS: Ht 160 cm; Wt 84.0 kg
[~2021-02-06 05:50] MED LIST changes: +METH-570 PO; -METH5TAB2 PO
--- NOTE | 2021-02-06 06:27 | PHYS DOC ---
Past Medical History Past Medical History: Kidney Stone, Other Additional Past Medical Histor: stomach ulcer Past Surgical History: , Hysterectomy Additional Past Surgical Histo: Kidney stents done at Smoking Status: Never Smoker Alcohol Use: None Drug Use: None General Adult EDM: Chief Complaint: ABDOMINAL PAIN HPI: HPI: 56-year-old female who is currently on methadone presents to the emergency department complaining of abdominal pain in the upper quadrants of her abdomen for the last 2 weeks that has been intermittent, feels dull, associated with lack of stool production for the last 2 days. She denies any further stool changes such as blood in the stool diarrhea or any associated nausea vomiting. She states that colon cancer runs in her family. She denies any other symptoms today. She sometimes takes MiraLAX at home with relief of her abdominal pain. The patient denies fever, chills, chest pain, shortness of breath, urinary symptoms, cough, recent trauma, or any other complaints. Review of Systems: Review of Systems: ROS is otherwise negative except for what was mentioned in HPI Heart Score: C/O Chest Pain: No Allergies: Allergies: Allergies Coded Allergies Type Severity Reaction Last Updated Verified codeine Allergy Intermediate ITCHING 11/19/13 Yes Physical Exam: PE: Constitutional: No acute distress, non-toxic appearance. HENT: Atraumatic, bilateral external ears normal, nose normal. Eyes: PERRLA, EOMI, conjunctiva normal, no discharge. Neck: Normal range of motion, supple, no stridor. Cardiovascular: Cap refill less than 2 seconds bilaterally. 2+ radial pulses Lungs & Thorax: No respiratory distress, symmetrical expansion. Abdomen: Soft, minimal upper quadrant tenderness Skin: Warm, dry. Extremities: No tenderness, no cyanosis, ROM intact, no edema. Neurologic: Alert and oriented X 3, normal motor function, normal sensory function, no focal deficits noted. Non ataxic gait. GCS 15. Psychologic: Affect normal, judgment normal, mood normal. Current Patient Data: Labs: Laboratory Tests Test 02/06/21 06:00 02/06/21 06:39 Urine Collection Type Void Urine Color Yellow Urine Clarity Clear Urine pH 7.5 (<5.0-8.0) Urine Specific [place] 1.015 (1.000-1.030) Urine Protein Negative mg/dL (NEG-TRACE) Urine Glucose (UA) Negative mg/dL (NEG) Urine Ketones (Stick) Negative mg/dL (NEG) Urine Blood Moderate (NEG) Urine Nitrite Negative (NEG) Urine Bilirubin Negative (NEG) Urine Urobilinogen Dipstick 0.2 mg/dL (0.2 mg/dL) Urine Leukocyte Esterase Large (NEG) Urine RBC 0 /HPF (0-2) Urine WBC 11-20 /HPF (0-4) Urine Squamous Epithelial Cells Many /LPF Urine Bacteria Few /HPF (0-FEW) White Blood Count 4.8 x10^3/uL (4.0-11.0) Red Blood Count 4.06 x10^6/uL (3.50-5.40) Hemoglobin 12.6 g/dL (12.0-15.5) Hematocrit 36.7 % (36.0-47.0) Mean Corpuscular Volume 90 fL (79-100) Mean Corpuscular Hemoglobin 31 pg (25-35) Mean Corpuscular Hemoglobin Concent 34 g/dL (31-37) Red Cell Distribution Width 13.5 % (11.5-14.5) Platelet Count 232 x10^3/uL (140-400) Neutrophils (%) (Auto) 39 % (31-73) Lymphocytes (%) (Auto) 38 % (24-48) Monocytes (%) (Auto) 10 % (0-9) Eosinophils (%) (Auto) 12 % (0-3) Basophils (%) (Auto) 1 % (0-3) Neutrophils # (Auto) 1.9 x10^3/uL (1.8-7.7) Lymphocytes # (Auto) 1.8 x10^3/uL (1.0-4.8) Monocytes # (Auto) 0.5 x10^3/uL (0.0-1.1) Eosinophils # (Auto) 0.6 x10^3/uL (0.0-0.7) Basophils # (Auto) 0.1 x10^3/uL (0.0-0.2) Sodium Level 137 mmol/L (136-145) Potassium Level 3.7 mmol/L (3.5-5.1) Chloride Level 101 mmol/L (98-107) Carbon Dioxide Level 30 mmol/L (21-32) Anion Gap 6 (6-14) Blood Urea Nitrogen 8 mg/dL (7-20) Creatinine 0.8 mg/dL (0.6-1.0) Estimated GFR (Cockcroft-Gault) 73.9 BUN/Creatinine Ratio 10 (6-20) Glucose Level 130 mg/dL (70-99) Calcium Level 8.7 mg/dL (8.5-10.1) Total Bilirubin 0.7 mg/dL (0.2-1.0) Aspartate Amino Transf (AST/SGOT) 72 U/L (15-37) Alanine Aminotransferase (ALT/SGPT) 173 U/L (14-59) Alkaline Phosphatase 108 U/L (46-116) Total Protein 7.6 g/dL (6.4-8.2) Albumin 3.4 g/dL (3.4-5.0) Albumin/Globulin Ratio 0.8 (1.0-1.7) Lipase 100 U/L (73-393) Vital Signs: Vital Signs Date Time Temp Pulse Resp B/P (MAP) Pulse Ox O2 Delivery O2 Flow Rate FiO2 02/06/21 07:28 50 20 138/63 (88) 98 Room Air 02/06/21 06:45 53 16 141/69 (93) 97 Room Air 02/06/21 06:15 58 16 133/66 (88) 94 Room Air 02/06/21 06:15 98.1 59 18 133/66 (88) 95 Room Air 98.1 Radiology/Procedures: Radiology/Procedures: CT scan of the abdomen and pelvis with contrast 02/06/2021 CLINICAL HISTORY: Abdominal pain TECHNIQUE: After the intravenous administration of 75 cc of Omnipaque 300 only, contiguous, 5 mm axial sections were obtained through the abdomen and pelvis. One or more of the following individualized dose reduction techniques were utilized for this study: 1. Automated exposure control. 2. Adjustment of the mA and/or kV according to patient size. 3. Use of iterative reconstruction technique. FINDINGS: Comparison study is dated 08/31/2020. Images of the lung bases demonstrate minimal dependent subsegmental atelectasis bilaterally. The liver parenchyma has a decreased attenuation consistent with fatty infiltration. The spleen, pancreas, adrenal glands and left kidney are within normal limits. A 1 cm rounded low-attenuation lesion is seen involving the midpole of the right kidney. This likely represent cysts. No further imaging evaluation is recommended. The abdominal aorta tapers normally. The gallbladder is contracted. No free fluid or free air is seen within the abdomen. There is no evidence of bowel obstruction. Images through the pelvis demonstrate the urinary bladder to be contracted. No free fluid is seen. The osseous structures are unchanged. IMPRESSION: No acute abnormality is seen. Electronically signed by: Tony Puga MD (02/06/2021 7:48 AM) Course & Med Decision Making: Course & Med Decision Making Labs and imaging are benign, advised patient to continue taking MiraLAX and follow-up with her primary care doctor. She appears well on examination today a nd her vital signs are stable. Departure Departure Impression: Primary Impression: Abdominal pain Disposition: HOME / SELF CARE / HOMELESS Condition: STABLE Referrals: NO PCP (PCP) Patient Instructions: Abdominal Pain (Nonspecific) Additional Instructions: You were seen in the emergency department for abdominal pain. Your tests did not show any obvious acute cause of your symptoms and your physical exam was non concerning for a dangerous disease process at this time. This however can change early in a disease course. You must return to the ED if you develop any new or worrisome symptoms for another exam. - Make sure to drink plenty of fluids at home - You may take a gentle laxative such as Miralax (over the counter) for bowel comfort. - Avoid drinking alcohol while you are having abdominal pain as this may worsen symptoms. - Return to the ER if you are not able to tolerate water and/or a normal diet, have increased pain or a change in character of your pain, develop a fever (>100.3 F), have nausea, vomiting and/or diarrhea that is unable to be treated at home, pass out, and/or you are not able to perform you normal daily activity. MELYSSA BRADLEY DO Feb 06, 2021 06:26
[2021-02-06] MEDS ORDERED: IV NORMAL SALINE 1000ML BAG 1,000 ML IV SCH (06:30)
[2021-02-06] MEDS ORDERED: ACETAMINOPHEN 500 MG TABLET PO ONE (06:30)
[2021-02-06 06:39] LABS: BILIRUBIN,URINE NEGATIVE (NEG); CLARITY,URINE CLEAR; COLOR,URINE YELLOW; NITRITE,URINE NEGATIVE (NEG); PH,URINE 7.5 (<5.0-8.0); PROTEIN,URINE NEGATIVE (NEG-TRACE); UROBILINOGEN,URINE 0.2 mg/dL (0.2 mg/dL)
[2021-02-06 06:56] LABS: BACTERIA,URINE FEW /HPF (0-FEW); RBC,URINE 0 /HPF (0-2)
[2021-02-06 07:04] LABS: CALCIUM 8.7 mg/dL (8.5-10.1); CREATININE 0.8 mg/dL (0.6-1.0); GFR 73.9; POTASSIUM 3.7 mmol/L (3.5-5.1)
[2021-02-06 07:10] LABS: ALBUMIN 3.4 g/dL (3.4-5.0); ALBUMIN/GLOBULIN RATIO 0.8 (1.0-1.7); TOTAL BILIRUBIN 0.7 mg/dL (0.2-1.0); TOTAL PROTEIN 7.6 g/dL (6.4-8.2)
[2021-02-06] MEDS ORDERED: IOHEXOL 300 MG/ML 100ML VIAL. IV ONE (07:15)
[2021-02-06] MEDS ORDERED: CONTRAST GIVEN. MC PRN (07:30)
[2021-02-06 07:48] LABS: BASO # 0.1 x10^3/uL (0.0-0.2); BASO % 1 % (0-3); EOS # 0.6 x10^3/uL (0.0-0.7); EOS % 12 % (0-3); HEMATOCRIT 36.7 % (36.0-47.0); HEMOGLOBIN 12.6 g/dL (12.0-15.5); LYMPH # 1.8 x10^3/uL (1.0-4.8); LYMPH % 38 % (24-48); MEAN CORPUSCULAR HEMOGLOBIN 31 pg (25-35); MEAN CORPUSCULAR HGB CONC 34 g/dL (31-37); MEAN CORPUSCULAR VOLUME 90 fL (79-100); MONO # 0.5 x10^3/uL (0.0-1.1); MONO % 10 % (0-9); NEUT # 1.9 x10^3/uL (1.8-7.7); NEUT % 39 % (31-73); PLATELET COUNT 232 x10^3/uL (140-400); RED BLOOD COUNT 4.06 x10^6/uL (3.50-5.40); RED CELL DISTRIBUTION WIDTH 13.5 % (11.5-14.5); WHITE BLOOD COUNT 4.8 x10^3/uL (4.0-11.0)
--- NOTE | 2021-02-06 07:50 | RAD ---
CT scan of the abdomen and pelvis with contrast 02/06/2021 CLINICAL HISTORY: Abdominal pain TECHNIQUE: After the intravenous administration of 75 cc of Omnipaque 300 only, contiguous, 5 mm axia l sections were obtained through the abdomen and pelvis. One or more of the following individualized dose reduction techniques were utilized for this study: 1. Automated exposure control. 2. Adjustment of the mA and/or kV according to patient size. 3. Use of iterative reconstruction technique. FINDINGS: Comparison study is dated 08/31/2020. Images of the lung bases demonstrate minimal dependent subsegmental atelectasis bilaterally. The liver parenchyma has a decreased attenuation consistent with fatty infiltration. The spleen, panc reas, adrenal glands and left kidney are within normal limits. A 1 cm rounded low-attenuation lesion is seen involving the midpole of the right kidney. This likely represent cysts. No further imaging ev aluation is recommended. The abdominal aorta tapers normally. The gallbladder is contracted. No free fluid or free air is seen within the abdomen. There is no evidence of bowel obstruction. Images through the pelvis demonstrate the urinary bladder to be contracted. No free fluid is seen. Th e osseous structures are unchanged. IMPRESSION: No acute abnormality is seen. Electronically signed by: Tony Puga MD (02/06/2021 7:48 AM) [id number]
[2021-02-06 08:00] VITALS: BP 140/66
== END 2021-02-06 08:10 | disposition home or self-care (01) ==
LOC: ER 05:50
DX: R10.11 Right upper quadrant pain (principal); R10.12 Left upper quadrant pain; R11.2 Nausea with vomiting, unspecified; Z87.442 Personal history of urinary calculi; Z98.890 Other specified postprocedural states; Z90.710 Acquired absence of both cervix and uterus; Z88.5 Allergy status to narcotic agent
CPT/HCPCS: 36415; 74177; 80053; 81001; 83690; 85025; 87086; 96360; 99285; J7030; Q9967

== ENCOUNTER 2021-10-07 06:56 | Emergency (ER) | payer MEDICAID ==
[~2021-10-07] VITALS: Ht 167.6 cm; Wt 87.4 kg
[~2021-10-07 06:56] MED LIST changes: +CYCL10TA19 PO; -CYCL10TA2 PO
[2021-10-07 07:12] VITALS: BP 151/70
[2021-10-07 08:04] LABS: INFLUENZA A PATIENT NEGATIVE (NEGATIVE); INFLUENZA B PATIENT NEGATIVE (NEGATIVE)
--- NOTE | 2021-10-07 09:07 | PHYS DOC ---
Past Medical History Past Medical History: Kidney Stone, Other Additional Past Medical Histor: stomach ulcer Past Surgical History: , Hysterectomy, Other Additional Past Surgical Histo: Kidney stents done at Smoking Status: Never Smoker Alcohol Use: None Drug Use: None General Adult EDM: Chief Complaint: SORE THROAT HPI: HPI: Patient is a 56 year old female presents with pharyngitis. Patient has no other symptoms besides sore throat. Patient presents to figure out what might be causing her sore throat. Patient states that it is helped with Tylenol. She has not had any difficulty swallowing. Review of Systems: Review of Systems: Constitutional: Denies fever or chills. [] Eyes: Denies change in visual acuity. [] HENT: Denies nasal congestion, positive sore throat [] Respiratory: Denies cough or shortness of breath. [] Cardiovascular: Denies chest pain or edema. [] GI: Denies abdominal pain, nausea, vomiting, bloody stools or diarrhea. [] : Denies dysuria. [] Musculoskeletal: Denies back pain or joint pain. [] Integument: Denies rash. [] Neurologic: Denies headache, focal weakness or sensory changes. [] Endocrine: Denies polyuria or polydipsia. [] Lymphatic: Denies swollen glands. [] Psychiatric: Denies depression or anxiety. [] Heart Score: C/O Chest Pain: No Risk Factors: Risk Factors: DM, Current or recent (<one month) smoker, HTN, HLP, family history of CAD, obesity. Risk Scores: Score 0 - 3: 2.5% MACE over next 6 weeks - Discharge Home Score 4 - 6: 20.3% MACE over next 6 weeks - Admit for Clinical Observation Score 7 - 10: 72.7% MACE over next 6 weeks - Early Invasive Strategies Allergies: Allergies: Allergies Coded Allergies Type Severity Reaction Last Updated Verified codeine Allergy Intermediate ITCHING 11/19/13 Yes Physical Exam: PE: Constitutional: Well developed, well nourished, no acute distress, non-toxic appearance. [] HENT: Normocephalic, atraumatic, bilateral external ears normal, oropharynx moist, no oral exudates, nose normal. Erythematous posterior pharynx, no exit [] Eyes: PERRLA, EOMI, conjunctiva normal, no discharge. [] Neck: Normal range of motion, no tenderness, supple, no stridor. [] Cardiovascular:Heart rate regular rhythm, no murmur [] Lungs & Thorax: Bilateral breath sounds clear to auscultation [] Abdomen: Bowel sounds normal, soft, no tenderness, no masses, no pulsatile masses. [] Skin: Warm, dry, no erythema, no rash. [] Back: No tenderness, no CVA tenderness. [] Extremities: No tenderness, no cyanosis, no clubbing, ROM intact, no edema. [] Neurologic: Alert and oriented X 3, normal motor function, normal sensory function, no focal deficits noted. [] Psychologic: Affect normal, judgement normal, mood normal. [] Current Patient Data: Labs: Laboratory Tests Test 10/07/21 07:30 Influenza Type A Antigen Negative (NEGATIVE) Influenza Type B Antigen Negative (NEGATIVE) SARS-CoV-2 Antigen (Rapid) Negative (NEGATIVE) Group A Streptococcus Rapid Negative (NEGATIVE) Vital Signs: Vital Signs Date Time Temp Pulse Resp B/P (MAP) Pulse Ox O2 Delivery O2 Flow Rate FiO2 10/07/21 07:12 99.0 67 16 151/70 (97) 96 Room Air 99.0 EKG: EKG: [] Radiology/Procedures: Radiology/Procedures: [] Impression: Viral pharyngitis Course & Med Decision Making: Course & Med Decision Making Pertinent Labs and Imaging studies reviewed. (See chart for details) 56-year-old female with viral pharyngitis. Consistent with exam. Tested negative for strep and influenza. Patient discharged in normal stable cond ition. Patient agrees with plan. All questions answered, patient hemodynamically stable at time of discharge. ER precautions given. Philip Disclaimer: Philip Disclaimer: This electronic medical record was generated, in whole or in part, using a voice recognition dictation system. Departure Departure Impression: Primary Impression: Acute pharyngitis Disposition: HOME / SELF CARE / HOMELESS Condition: GOOD Patient Instructions: Sore Throat, [id number] Additional Instructions: Follow-up with your primary care physician in 1 to 2 weeks if your symptoms do not dissipate You may use Tylenol and ibuprofen in combination to control your symptoms You may also use lozenges or throat numbing sprays to help your symptoms Come back to the emergency department if you are having severe or worsening symptoms CHRYSTAL DEE MD October 07, 2021 09:07
== END 2021-10-07 09:10 | disposition home or self-care (01) ==
LOC: ER 06:56
DX: J02.9 Acute pharyngitis, unspecified (principal); Z20.822 Contact with and (suspected) exposure to COVID-19; Z87.442 Personal history of urinary calculi; Z88.5 Allergy status to narcotic agent
CPT/HCPCS: 87070; 87147; 87428; 87880; 99283